=== PATIENT | male | born 1985 | race African-American/Black ===

== ENCOUNTER 2017-02-18 15:01 | Emergency (ER) | payer OTHER ==
[~2017-02-18] VITALS: Ht 170.2 cm; Wt 71.7 kg
[2017-02-18 15:53] VITALS: BP 137/74
== END 2017-02-18 18:20 | disposition home or self-care (01) ==
LOC: ED 15:01
DX: S60.221A Contusion of right hand, initial encounter (principal); M54.5 Low back pain; M54.6 Pain in thoracic spine; J45.909 Unspecified asthma, uncomplicated; V49.49XA Driver injured in collision with other motor vehicles in traffic accident, initial encounter; Y93.89 Activity, other specified; Y99.8 Other external cause status; Y92.89 Other specified places as the place of occurrence of the external cause